=== PATIENT | female | born 1930 | race Caucasian/White ===

== ENCOUNTER 2017-02-09 09:11 | Emergency (ER) | payer MEDICARE ==
[~2017-02-09 09:11] MED LIST: ACET-66 PO; CLOP75TA14 PO; CLOT15C TP; CREON12 PO; DOCU-132 PO; INSLAN SQ; METO50TA18 PO; NITR0.4T SL; PANT40TA25 PO; PRED1TAB PO; SITA25TA5 PO
[2017-02-09 10:14] LABS: BASOPHILS % (AUTO) 0.8 % (0.0-5.0); EOSINOPHILS % (AUTO) 2.9 % (0.0-8.0); HEMATOCRIT 39.9 % (36-48); LYMPHOCYTES % (AUTO) 37.1 % (21.0-51.0); MEAN CORPUSCULAR HEMOGLOBIN 30.4 pg (27.0-33.0); MEAN CORPUSCULAR HGB CONC 33.6 g/dL (32.0-36.0); MEAN CORPUSCULAR VOLUME 90.3 fL (79-99); NEUTROPHILS % (AUTO) 48.2 % (40.0-77.0); NUCLEATED RED BLOOD CELLS 0.1 % (0.0-0.19); PLATELET COUNT (AUTO) 125 K/uL (130-400); RED BLOOD CELL COUNT(AUTO) 4.42 MIL/uL (4.00-5.50); RED CELL DISTRIBUTION WIDTH 14.4 % (11.0-15.5); WHITE BLOOD COUNT (AUTO) 6.6 K/uL (4.8-10.8)
[2017-02-09 10:15] LABS: CREATININE 1.5 mg/dL (0.5-1.5); POTASSIUM 4.7 mmol/L (3.5-5.1)
[2017-02-09 10:20] LABS: ALBUMIN 3.4 g/dL (3.5-5.0); BILIRUBIN,TOTAL 0.6 mg/dL (0.2-1.0); TOTAL PROTEIN, SERUM 6.8 g/dL (6.0-8.3)
[2017-02-09] MEDS ORDERED: SODIUM CHLORIDE 0.9% 1000ML 1,000 ML IV ONE (10:48)
[2017-02-09] MEDS ORDERED: ONDANSETRON HCL 4 MG/2 ML VIAL ONE (10:48)
[2017-02-09 11:23] LABS: APPEARANCE,URINE TURBID (CLEAR); BILIRUBIN,URINE NEGATIVE (NEGATIVE); COLOR,URINE YELLOW (YELLOW); GLUCOSE, URINE (UA) NEGATIVE (NEGATIVE); KETONES,URINE NEGATIVE (NEGATIVE); LEUKOCYTE ESTERASE ,URINE LARGE (NEGATIVE); NITRATE,URINE NEGATIVE (NEGATIVE); OCCULT BLOOD,URINE LARGE (NEGATIVE); PH,URINE 5.5 (5.0-8.0); PROTEIN,URINE TRACE (NEGATIVE); UROBILINOGEN,URINE 0.2 mg/dL (0.2-1.0)
[2017-02-09 11:31] LABS: BACTERIA,URINE Many /HPF (None Seen); RBC,URINE 0-1 /HPF (0-1)
[2017-02-09 11:32] LABS: MUCUS,URINE Few LPF (None Seen); SQUAMOUS EPITHELIAL CELL,UR Many /LPF (0-2)
[2017-02-09] MEDS ORDERED: DIPHENOXYLATE HCL/ATROPINE 2.5/0.025 MG TAB PO ONE (14:14)
== END 2017-02-09 14:26 | disposition home or self-care (01) ==
LOC: EDH 09:11
DX: K52.89 Other specified noninfective gastroenteritis and colitis (principal); E86.0 Dehydration; I11.0 Hypertensive heart disease with heart failure; I50.9 Heart failure, unspecified; E78.5 Hyperlipidemia, unspecified; Z95.1 Presence of aortocoronary bypass graft; E11.9 Type 2 diabetes mellitus without complications; Z95.0 Presence of cardiac pacemaker; Z90.49 Acquired absence of other specified parts of digestive tract; Z98.890 Other specified postprocedural states; Z87.891 Personal history of nicotine dependence; Z88.0 Allergy status to penicillin
CPT/HCPCS: 36415; 80053; 81001; 82948; 85025; 96361; 96374; 99285; J2405; J7030

== ENCOUNTER 2017-07-22 02:37 | Observation (INO) | payer MEDICARE ==
[~2017-07-22] VITALS: Ht 157.5 cm; Wt 110.6 kg
[2017-07-22 03:12] LABS: RAPID GROUP A STREP NEGATIVE (NEGATIVE)
[2017-07-22 03:34] LABS: BASOPHILS % (AUTO) 0.9 % (0.0-5.0); EOSINOPHILS % (AUTO) 1.9 % (0.0-8.0); HEMATOCRIT 37.6 % (36-48); LYMPHOCYTES % (AUTO) 34.4 % (21.0-51.0); MEAN CORPUSCULAR HEMOGLOBIN 30.8 pg (27.0-33.0); MEAN CORPUSCULAR HGB CONC 34.2 g/dL (32.0-36.0); MEAN CORPUSCULAR VOLUME 90.1 fL (79-99); MONOCYTES % (AUTO) 9.1 % (3.0-13.0); NEUTROPHILS % (AUTO) 53.7 % (40.0-77.0); NUCLEATED RED BLOOD CELLS 0.1 % (0.0-0.19); RED BLOOD CELL COUNT(AUTO) 4.17 MIL/uL (4.00-5.50); RED CELL DISTRIBUTION WIDTH 13.8 % (11.0-15.5); WHITE BLOOD COUNT (AUTO) 7.6 K/uL (4.8-10.8)
[2017-07-22 03:37] LABS: CREATININE 1.6 mg/dL (0.5-1.5); POTASSIUM 4.4 mmol/L (3.5-5.1)
[2017-07-22 03:41] LABS: INR 1.01 (0.85-1.15); PARTIAL THROMBOPLASTIN TIME 24.5 SEC (26.3-35.5); PROTHROMBIN TIME 10.6 SEC (9.6-11.6)
[2017-07-22 03:42] LABS: ALBUMIN 3.5 g/dL (3.5-5.0); BILIRUBIN,TOTAL 0.5 mg/dL (0.2-1.0); TOTAL PROTEIN, SERUM 6.7 g/dL (6.0-8.3)
[2017-07-22 04:08] LABS: PLATELET COUNT (AUTO) 120 K/uL (130-400)
[2017-07-22 04:09] LABS: PLATELET MORPHOLOGY LARGE PLTS PRESENT
[2017-07-22 05:24] LABS: HEMOGLOBIN A1C 8.3 % (4.0-6.0)
[2017-07-22] MEDS ORDERED: GLUCAGON 1MG KIT 1 MG ML IM PRN ×3 (05:45→21:00)
[2017-07-22] MEDS ORDERED: DEXTROSE 10%-WATER 1,000 ML IV SCH (05:45)
[2017-07-22] MEDS ORDERED: DEXTROSE 50%-WATER 50 ML DISP.SYRIN IV PRN ×3 (05:45→21:00)
[2017-07-22] MEDS ORDERED: DEXTROSE 10%-WATER 1,000 ML IV ONE (07:06)
[2017-07-22] MEDS ORDERED: POTASSIUM CHLORIDE 20MEQ/100ML 100 ML IV PRN (07:30)
[2017-07-22] MEDS ORDERED: ACETAMINOPHEN 325 MG TAB PO PRN (07:30)
[2017-07-22] MEDS ORDERED: ONDANSETRON HCL 4 MG/2 ML VIAL IV PRN (07:30)
[2017-07-22] MEDS ORDERED: LIDOCAINE HCL-MPF 1% 2ML VIAL IVP PRN (07:30)
[2017-07-22] MEDS ORDERED: HYDRALAZINE HCL 20 MG/ML VIAL IV PRN (07:30)
[2017-07-22] MEDS ORDERED: NITROGLYCERIN 0.4 MG SL TAB SL PRN (07:30)
[2017-07-22] MEDS ORDERED: POTASSIUM CHLORIDE 20 MEQ ERTAB PO PRN (07:30)
[2017-07-22] MEDS ORDERED: POTASSIUM CHLORIDE 10% ELIXIR 20 MEQ/15 ML UDCUP PO PRN (07:30)
[2017-07-22] MEDS ORDERED: ACETAMINOPHEN 325 MG TAB ONE (08:10)
[2017-07-22 10:45] VITALS: BP 128/60
[2017-07-22] MEDS: FAMOTIDINE 20MG TAB 20 MG TAB PO SCH (10:46)
[2017-07-22] MEDS ORDERED: LISI10TA7 PO (11:16)
[2017-07-22] MEDS ORDERED: BUME1TAB12 PO (11:16)
[2017-07-22] MEDS ORDERED: PREG50 PO (11:16)
[2017-07-22] MEDS ORDERED: METO-391 PO (11:16)
[2017-07-22] MEDS ORDERED: POTA-79 PO (11:16)
[2017-07-22] MEDS ORDERED: CLOT15CR62 TP (11:16)
[2017-07-22] MEDS ORDERED: PRAV10TA39 PO (11:16)
[2017-07-22] MEDS ORDERED: INSU100I13 SQ ×2 (11:16)
[2017-07-22] MEDS ORDERED: MULT-1250 PO (11:16)
[2017-07-22] MEDS ORDERED: CHOL200074 PO (11:16)
[2017-07-22 16:40] VITALS: BP 129/62
[2017-07-22] MEDS: ACETAMINOPHEN 325 MG TAB PO PRN (17:18)
[2017-07-22] MEDS ORDERED: IPRATROPIUM/ALBUTEROL SULFATE 3 ML SOLUTION IH PRN (18:00)
[2017-07-22] MEDS ORDERED: FUROSEMIDE 10 MG/ML 4ML VIAL IV SCH (18:00)
[2017-07-22 19:30] VITALS: BP 145/80
[2017-07-22] MEDS: INSULIN HUMULIN R 100 UNIT/ML 3ML SQ SCH (21:00)
[2017-07-22 23:23] VITALS: BP 142/67
[2017-07-23] MEDS: ACETAMINOPHEN 325 MG TAB PO PRN (01:59)
[2017-07-23 03:50] VITALS: BP 125/62
[2017-07-23] MEDS: INSULIN HUMULIN R 100 UNIT/ML 3ML SQ SCH (05:41)
[2017-07-23 05:51] LABS: CREATININE 1.2 mg/dL (0.5-1.5); POTASSIUM 4.1 mmol/L (3.5-5.1)
[2017-07-23 07:52] VITALS: BP 126/62
[2017-07-23] MEDS: FAMOTIDINE 20MG TAB 20 MG TAB PO SCH (08:52)
[2017-07-23] MEDS ORDERED: ENOXAPARIN SODIUM 30 MG/0.3 ML SQ SCH (09:00)
== END 2017-07-23 11:05 | disposition home or self-care (01) ==
LOC: EDH 02:37 → EDHIP 05:05 → 4BH 10:22
PROVIDERS: ADMIT Internal Medicine; ATTEND Internal Medicine
DX: E11.649 Type 2 diabetes mellitus with hypoglycemia without coma (principal); G47.33 Obstructive sleep apnea (adult) (pediatric); I11.0 Hypertensive heart disease with heart failure; I50.9 Heart failure, unspecified; E66.9 Obesity, unspecified; E78.5 Hyperlipidemia, unspecified; M35.00 Sjogren syndrome, unspecified; N28.9 Disorder of kidney and ureter, unspecified; Z95.0 Presence of cardiac pacemaker; Z95.1 Presence of aortocoronary bypass graft; Z90.49 Acquired absence of other specified parts of digestive tract; Z88.0 Allergy status to penicillin; Z83.3 Family history of diabetes mellitus; Z79.4 Long term (current) use of insulin
CPT/HCPCS: 36415 ×2; 71045; 80048; 80053; 82550; 82948 ×9; 83036; 83605; 84443; 84484; 85025; 85610; 85730; 87804 ×2; 87880; 93005; 94664; 96372; 96374; 96375; 99291; G0378 ×30; J1650; J1940; J3490 ×2

== ENCOUNTER 2018-02-24 11:37 | Emergency (ER) | payer MEDICARE ==
[~2018-02-24 11:37] MED LIST changes: +ACET-2743 PO; -ACET-66 PO; +BUME2TAB18 PO; +CHOL200074 PO; -CLOT15C TP; +CLOT15CR62 TP; -CREON12 PO; -DOCU-132 PO; -INSLAN SQ; +INSU100I13 SQ; +LISI10TA7 PO; +METO-391 PO; -METO50TA18 PO; +MULT-1250 PO; -NITR0.4T SL; +POTA-79 PO; +PRAV10TA39 PO; -PRED1TAB PO; +PREG50 PO; -SITA25TA5 PO
[2018-02-24] MEDS ORDERED: SODIUM CHLORIDE 0.9% 1000ML 1,000 ML IV ONE (12:10)
[2018-02-24 12:33] LABS: BASOPHILS % (AUTO) 0.7 % (0.0-5.0); EOSINOPHILS % (AUTO) 3.5 % (0.0-8.0); HEMATOCRIT 38.5 % (36-48); LYMPHOCYTES % (AUTO) 28.1 % (21.0-51.0); MEAN CORPUSCULAR HEMOGLOBIN 30.3 pg (27.0-33.0); MEAN CORPUSCULAR HGB CONC 33.1 g/dL (32.0-36.0); MEAN CORPUSCULAR VOLUME 91.5 fL (79-99); MONOCYTES % (AUTO) 9.5 % (3.0-13.0); NEUTROPHILS % (AUTO) 58.2 % (40.0-77.0); NUCLEATED RED BLOOD CELLS 0.1 % (0.0-0.19); PLATELET COUNT (AUTO) 123 K/uL (130-400); RED BLOOD CELL COUNT(AUTO) 4.21 MIL/uL (4.00-5.50); RED CELL DISTRIBUTION WIDTH 13.7 % (11.0-15.5); WHITE BLOOD COUNT (AUTO) 5.5 K/uL (4.8-10.8)
[2018-02-24 12:41] LABS: CREATININE 1.1 mg/dL (0.5-1.5); POTASSIUM 3.4 mmol/L (3.5-5.1)
[2018-02-24 12:46] LABS: ALBUMIN 3.4 g/dL (3.5-5.0); BILIRUBIN,TOTAL 0.8 mg/dL (0.2-1.0); TOTAL PROTEIN, SERUM 6.7 g/dL (6.0-8.3)
== END 2018-02-24 14:21 | disposition home or self-care (01) ==
LOC: EDH 11:37
DX: R19.7 Diarrhea, unspecified (principal); R10.9 Unspecified abdominal pain; I11.0 Hypertensive heart disease with heart failure; I50.9 Heart failure, unspecified; E11.9 Type 2 diabetes mellitus without complications; E78.5 Hyperlipidemia, unspecified; Z95.1 Presence of aortocoronary bypass graft; Z88.0 Allergy status to penicillin
CPT/HCPCS: 36415; 74176; 80053; 82948; 83690; 85025; 99284; J7030

== ENCOUNTER 2019-01-17 12:23 | Emergency (ER) | payer MEDICARE ==
[~2019-01-17 12:23] MED LIST changes: -BUME2TAB18 PO; +BUME2TAB5 PO
[2019-01-17 12:56] LABS: CREATININE 1.3 mg/dL (0.5-1.5)
[2019-01-17 13:01] LABS: ALBUMIN 3.7 g/dL (3.5-5.0); BILIRUBIN,TOTAL 0.8 mg/dL (0.2-1.0); TOTAL PROTEIN, SERUM 7.1 g/dL (6.0-8.3)
[2019-01-17 13:11] LABS: APPEARANCE,URINE Clear (CLEAR); BILIRUBIN,URINE Negative (NEGATIVE); COLOR,URINE Yellow (YELLOW); GLUCOSE, URINE (UA) Negative (NEGATIVE); KETONES,URINE Negative (NEGATIVE); LEUKOCYTE ESTERASE ,URINE Small (NEGATIVE); NITRATE,URINE Negative (NEGATIVE); OCCULT BLOOD,URINE Negative (NEGATIVE); PROTEIN,URINE Negative (NEGATIVE); UROBILINOGEN,URINE 0.2 mg/dL (0.2-1.0)
[2019-01-17 14:05] LABS: BASOPHILS % (AUTO) 0.8 % (0.0-5.0); EOSINOPHILS % (AUTO) 1.9 % (0.0-8.0); HEMATOCRIT 37.9 % (36-48); LYMPHOCYTES % (AUTO) 24.3 % (21.0-51.0); MEAN CORPUSCULAR HGB CONC 33.5 g/dL (32.0-36.0); MEAN CORPUSCULAR VOLUME 92.7 fL (79-99); MONOCYTES % (AUTO) 10.4 % (3.0-13.0); NEUTROPHILS % (AUTO) 62.6 % (40.0-77.0); PLATELET COUNT (AUTO) 141 K/uL (130-400); RED BLOOD CELL COUNT(AUTO) 4.09 MIL/uL (4.00-5.50); RED CELL DISTRIBUTION WIDTH 14.5 % (11.0-15.5); WHITE BLOOD COUNT (AUTO) 7.2 K/uL (4.8-10.8)
[2019-01-17 14:16] LABS: BACTERIA,URINE Few /HPF (None Seen); RBC,URINE 0-1 /HPF (0-1)
== END 2019-01-17 15:52 | disposition home or self-care (01) ==
LOC: EDH 12:23
DX: E11.649 Type 2 diabetes mellitus with hypoglycemia without coma (principal); E78.5 Hyperlipidemia, unspecified; I50.9 Heart failure, unspecified; I11.0 Hypertensive heart disease with heart failure; Z98.84 Bariatric surgery status; Z95.0 Presence of cardiac pacemaker; Z91.011 Allergy to milk products; Z88.0 Allergy status to penicillin; Z91.013 Allergy to seafood; Z88.8 Allergy status to other drugs, medicaments and biological substances; Z91.018 Allergy to other foods; Z98.890 Other specified postprocedural states; Z79.891 Long term (current) use of opiate analgesic; Z79.899 Other long term (current) drug therapy
CPT/HCPCS: 36415; 80053; 81001; 82948; 85025